=== PATIENT | female | born 1990 | race Caucasian/White ===

== ENCOUNTER → 2019-12-02 | Outpatient (CLI) | payer OTHER ==
--- NOTE | 2019-12-03 10:38 | WOMENS IMAGING REPORT ---
EXAM DESCRIPTION: BILAT DIAGNOSTIC MAMMO W/CAD; U/S BREAST UNILAT LIMITED COMPLETED DATE/TIME: 12/02/2019 8:30 am; 12/02/2019 9:17 am REASON FOR STUDY: N64.5 MASTODYNIA; N64.4 RIGHT BREAST; N64.4 LEFT BREAST N64.4 MASTODYNIA COMPARISON: None. EXAM PARAMETERS: Standard craniocaudal and mediolateral oblique views of each breast recorded using digital acquisition. Bilateral 90 mediolateral whole breast mammograms, left breast upper outer quadrant cone compression in the area of palpable abnormality Bilateral whole breast ultrasound was also performed for bilateral breast pain Read with the assistance of CAD: .[employer] - [employer] Manager Version 9.2 LIMITATIONS: None. FINDINGS: RIGHT BREAST MASSES: No suspicious masses. CALCIFICATIONS: No new or suspicious calcifications. ARCHITECTURAL DISTORTION: None. ASYMMETRY: None noted. OTHER: No other significant findings. LEFT BREAST MASSES: No suspicious masses. CALCIFICATIONS: No new or suspicious calcifications. ARCHITECTURAL DISTORTION: None. ASYMMETRY: None noted. OTHER: No other significant finding. Bilateral breast ultrasound: Right whole breast ultrasound was performed. No cysts. No masses. No dilated ducts. No focal acou stic absorption or worrisome findings. Left whole breast ultrasound was performed. No cysts. No masses. No dilated ducts. No focal acous tic absorption or worrisome findings. No focal findings at the left breast 12 o'clock palpable abnor mality. IMPRESSION: No mammographic or sonographic evidence for malignancy bilaterally BREAST DENSITY: b. There are scattered areas of fibroglandular density. BIRAD: ASSESSMENT: 1 Negative. RECOMMENDATION: RECOMMENDED FOLLOW UP: Patient should undergo a lifetime risk Assessment for breast cancer using the Cecille or GEE models. If she is found to have elevated lifetime risk of breast cance r, continue yearly screening. Otherwise, continue yearly bilateral mammography/ tomosynthesis beginn ing at age 40. SPECIFIC INTERVENTION/IMAGING/CONSULTATION RECOMMENDED:No additional intervention/ imaging/consultati on needed at this time. COMMUNICATION:The negative/benign results were communicated to the patient. COMMENT: The patient has been notified of the results by letter per MQSA requirements. Additional no tification policies are in place for contacting patient with suspicious or incomplete findings. Quality ID #225: The [employer] recommends an annual screening mammogram for women aged 40 years or over. This facility utilizes a reminder system to ensure that all patients receive reminder letters, and/or direct phone calls for appointments. This includes reminders for routine scr eening mammograms, diagnostic mammograms, or other Breast Imaging Interventions when appropriate. Th is patient will be placed in the appropriate reminder system. TECHNICAL DOCUMENTATION: FINDING NUMBER: (1) ASSESSMENT: (1) JOB ID: [id number] 2010 [employer]- All Rights Reserved Reading location - IP/workstation name: [email or web address]
--- NOTE | 2019-12-03 10:38 | WOMENS IMAGING REPORT ---
EXAM DESCRIPTION: BILAT DIAGNOSTIC MAMMO W/CAD; U/S BREAST UNILAT LIMITED COMPLETED DATE/TIME: 12/02/2019 8:30 am; 12/02/2019 9:17 am REASON FOR STUDY: N64.5 MASTODYNIA; N64.4 RIGHT BREAST; N64.4 LEFT BREAST N64.4 MASTODYNIA COMPARISON: None. EXAM PARAMETERS: Standard craniocaudal and mediolateral oblique views of each breast recorded using digital acquisition. Bilateral 90 mediolateral whole breast mammograms, left breast upper outer quadrant cone compression in the area of palpable abnormality Bilateral whole breast ultrasound was also performed for bilateral breast pain Read with the assistance of CAD: .[employer]ench - [employer] Version 9.2 LIMITATIONS: None. FINDINGS: RIGHT BREAST MASSES: No suspicious masses. CALCIFICATIONS: No new or suspicious calcifications. ARCHITECTURAL DISTORTION: None. ASYMMETRY: None noted. OTHER: No other significant findings. LEFT BREAST MASSES: No suspicious masses. CALCIFICATIONS: No new or suspicious calcifications. ARCHITECTURAL DISTORTION: None. ASYMMETRY: None noted. OTHER: No other significant finding. Bilateral breast ultrasound: Right whole breast ultrasound was performed. No cysts. No masses. No dilated ducts. No focal acou stic absorption or worrisome findings. Left whole breast ultrasound was performed. No cysts. No masses. No dilated ducts. No focal acous tic absorption or worrisome findings. No focal findings at the left breast 12 o'clock palpable abnor mality. IMPRESSION: No mammographic or sonographic evidence for malignancy bilaterally BREAST DENSITY: b. There are scattered areas of fibroglandular density. BIRAD: ASSESSMENT: 1 Negative. RECOMMENDATION: RECOMMENDED FOLLOW UP: Patient should undergo a lifetime risk Assessment for breast cancer using the Cecille or GEE models. If she is found to have elevated lifetime risk of breast cance r, continue yearly screening. Otherwise, continue yearly bilateral mammography/ tomosynthesis beginn ing at age 40. SPECIFIC INTERVENTION/IMAGING/CONSULTATION RECOMMENDED:No additional intervention/ imaging/consultati on needed at this time. COMMUNICATION:The negative/benign results were communicated to the patient. COMMENT: The patient has been notified of the results by letter per MQSA requirements. Additional no tification policies are in place for contacting patient with suspicious or incomplete findings. Quality ID #225: The [employer] recommends an annual screening mammogram for women aged 40 years or over. This facility utilizes a reminder system to ensure that all patients receive reminder letters, and/or direct phone calls for appointments. This includes reminders for routine scr eening mammograms, diagnostic mammograms, or other Breast Imaging Interventions when appropriate. Th is patient will be placed in the appropriate reminder system. TECHNICAL DOCUMENTATION: FINDING NUMBER: (1) ASSESSMENT: (1) JOB ID: [id number] 2010 [employer]- All Rights Reserved Reading location - IP/workstation name: [facility]
--- NOTE | 2019-12-03 10:38 | WOMENS IMAGING REPORT ---
EXAM DESCRIPTION: BILAT DIAGNOSTIC MAMMO W/CAD; U/S BREAST UNILAT LIMITED COMPLETED DATE/TIME: 12/02/2019 8:30 am; 12/02/2019 9:17 am REASON FOR STUDY: N64.5 MASTODYNIA; N64.4 RIGHT BREAST; N64.4 LEFT BREAST N64.4 MASTODYNIA COMPARISON: None. EXAM PARAMETERS: Standard craniocaudal and mediolateral oblique views of each breast recorded using digital acquisition. Bilateral 90 mediolateral whole breast mammograms, left breast upper outer quadrant cone compression in the area of palpable abnormality Bilateral whole breast ultrasound was also performed for bilateral breast pain Read with the assistance of CAD: .Embedded Chat - [employer] (?) Garden Worker Version 9.2 LIMITATIONS: None. FINDINGS: RIGHT BREAST MASSES: No suspicious masses. CALCIFICATIONS: No new or suspicious calcifications. ARCHITECTURAL DISTORTION: None. ASYMMETRY: None noted. OTHER: No other significant findings. LEFT BREAST MASSES: No suspicious masses. CALCIFICATIONS: No new or suspicious calcifications. ARCHITECTURAL DISTORTION: None. ASYMMETRY: None noted. OTHER: No other significant finding. Bilateral breast ultrasound: Right whole breast ultrasound was performed. No cysts. No masses. No dilated ducts. No focal acou stic absorption or worrisome findings. Left whole breast ultrasound was performed. No cysts. No masses. No dilated ducts. No focal acous tic absorption or worrisome findings. No focal findings at the left breast 12 o'clock palpable abnor mality. IMPRESSION: No mammographic or sonographic evidence for malignancy bilaterally BREAST DENSITY: b. There are scattered areas of fibroglandular density. BIRAD: ASSESSMENT: 1 Negative. RECOMMENDATION: RECOMMENDED FOLLOW UP: Patient should undergo a lifetime risk Assessment for breast cancer using the Cecille or GEE models. If she is found to have elevated lifetime risk of breast cance r, continue yearly screening. Otherwise, continue yearly bilateral mammography/ tomosynthesis beginn ing at age 40. SPECIFIC INTERVENTION/IMAGING/CONSULTATION RECOMMENDED:No additional intervention/ imaging/consultati on needed at this time. COMMUNICATION:The negative/benign results were communicated to the patient. COMMENT: The patient has been notified of the results by letter per MQSA requirements. Additional no tification policies are in place for contacting patient with suspicious or incomplete findings. Quality ID #225: The [employer] recommends an annual screening mammogram for women aged 40 years or over. This facility utilizes a reminder system to ensure that all patients receive reminder letters, and/or direct phone calls for appointments. This includes reminders for routine scr eening mammograms, diagnostic mammograms, or other Breast Imaging Interventions when appropriate. Th is patient will be placed in the appropriate reminder system. TECHNICAL DOCUMENTATION: FINDING NUMBER: (1) ASSESSMENT: (1) JOB ID: [id number] 2010 [employer]- All Rights Reserved Reading location - IP/workstation name: [facility]
== END ==
LOC: WI 07:50
PROVIDERS: ATTEND Nurse Practitioner Family
DX: N64.4 Mastodynia (principal)
CPT/HCPCS: 76642; 77066